=== PATIENT | male | born 2000 | race Two or more races ===

== ENCOUNTER 2020-12-14 16:32 | Emergency (ER) | payer OTHER ==
[~2020-12-14] VITALS: Ht 177.8 cm; Wt 108.9 kg
== END 2020-12-14 23:01 | disposition home or self-care (01) ==
LOC: EMR PED 16:32
DX: J06.9 Acute upper respiratory infection, unspecified (principal); Z03.818 Encounter for observation for suspected exposure to other biological agents ruled out